=== PATIENT | female | born 1985 | race Caucasian/White ===

== ENCOUNTER → 2017-02-16 | Outpatient (CLI) | payer OTHER | LOC: LAB 16:33 | DX: R31.1 Benign essential microscopic hematuria (principal) | CPT/HCPCS: 87086 ==

== ENCOUNTER 2020-07-21 12:58 | Emergency (ER) | payer BC, OTHER ==
[~2020-07-21 12:58] MED LIST: ASPIRIN CHEWABL81 MG PO; NITROSTAT0.4 MG SL; NORCO 5-325 TA1 EACH PO; OMNICEF 300 MG300 MG PO; ZOFRAN ODT 4 MG4 MG SL
[2020-07-21 17:05] LABS: HEMOGLOBIN 13.9 gm/dl (12.3-15.3); RED BLOOD COUNT 4.63 M/UL (4.00-5.10)
[2020-07-21 17:30] LABS: BUN/CREATININE RATIO 9 (0-10)
== END 2020-07-21 18:37 | disposition home or self-care (01) ==
LOC: ER1 12:58
PROVIDERS: Physician Assistant
DX: R10.11 Right upper quadrant pain (principal); R11.2 Nausea with vomiting, unspecified; R19.7 Diarrhea, unspecified; I10 Essential (primary) hypertension; F17.290 Nicotine dependence, other tobacco product, uncomplicated; Z90.49 Acquired absence of other specified parts of digestive tract; Z88.8 Allergy status to other drugs, medicaments and biological substances
CPT/HCPCS: 80053; 81001; 82150; 83690; 84703; 85025; 96374; 96375; 99284; J2270; J2405; Q9967

== ENCOUNTER → 2020-07-28 | Outpatient (CLI) | payer BC, OTHER | LOC: EXRD 06-21 08:00 | DX: R10.13 Epigastric pain (principal); Z90.49 Acquired absence of other specified parts of digestive tract | CPT/HCPCS: 76705 ==

== ENCOUNTER → 2020-09-27 | Outpatient (CLI) | payer BC, OTHER | LOC: RAD 10:39 | DX: M25.551 Pain in right hip (principal) | CPT/HCPCS: 73502 ==

== ENCOUNTER → 2020-09-29 | Outpatient (CLI) | payer BC, OTHER | LOC: HEART 5 08:00 | DX: R00.2 Palpitations (principal) ==

== ENCOUNTER → 2020-12-07 | Outpatient (CLI) | payer BC | LOC: RAD 13:45 | DX: M79.671 Pain in right foot (principal) | CPT/HCPCS: 73630 ==

== ENCOUNTER → 2021-01-06 | Outpatient (CLI) | payer BC | LOC: RAD 08:40 | DX: S73.101A Unspecified sprain of right hip, initial encounter (principal) | CPT/HCPCS: 73722; A9577; Q9967 ==

== ENCOUNTER → 2021-05-19 | Outpatient (CLI) | payer BC ==
[~2021-05-19] MED LIST changes: +DAILY VALUE1 EACH PO; +MECLIZINE HCL25 MG PO; +PROMETHAZINE12.5 M1 PO; +PROVENTIL HFA6.7 GM INH; +TOPAMAX100 MG PO; +[UNRECOGNIZED DRUG - REMARK] IR
[2021-05-19 10:41] LABS: HEMOGLOBIN 12.8 gm/dl (12.3-15.3); RED BLOOD COUNT 4.33 M/UL (4.00-5.10); WHITE BLOOD COUNT 7.6 K/UL (4.5-11.0)
== END ==
LOC: OPSV2 05-17 10:30
PROVIDERS: Obstetrics & Gynecology
DX: Z01.812 Encounter for preprocedural laboratory examination (principal); N93.9 Abnormal uterine and vaginal bleeding, unspecified
CPT/HCPCS: 36415; 81001; 85025

== ENCOUNTER → 2021-05-25 | Day surgery (SDC) | payer BC ==
[~2021-05-25] MED LIST changes: +DOCUSATE SODIU250 MG PO; +HYDROCODONE-AC1 EACH PO; +IBUPROFEN600 MG PO
== END | disposition home or self-care (01) ==
LOC: OR 05:26
DX: N83.8 Other noninflammatory disorders of ovary, fallopian tube and broad ligament (principal); N80.0 Endometriosis of uterus; N73.6 Female pelvic peritoneal adhesions (postinfective); I10 Essential (primary) hypertension; Z91.040 Latex allergy status; Z90.49 Acquired absence of other specified parts of digestive tract; Z20.822 Contact with and (suspected) exposure to COVID-19
CPT/HCPCS: 36415; 84702; C1769; J0690; J1100; J1885; J2001; J2250; J2405; J2704; J2710; J3010; J7120

== ENCOUNTER 2021-06-07 08:51 | Emergency (ER) | payer BC ==
[2021-06-07 10:09] LABS: HEMOGLOBIN 11.9 gm/dl (12.3-15.3); RED BLOOD COUNT 4.07 M/UL (4.00-5.10); WHITE BLOOD COUNT 5.9 K/UL (4.5-11.0)
[2021-06-07 10:30] LABS: BUN/CREATININE RATIO 10 (0-10)
== END 2021-06-07 15:20 | disposition home or self-care (01) ==
LOC: ER1 08:51
PROVIDERS: Nurse Practitioner
DX: U07.1 COVID-19 (principal); F17.290 Nicotine dependence, other tobacco product, uncomplicated
CPT/HCPCS: 0240U; 71045; 80048; 81001; 82550; 82553; 83874; 84484; 85025; 85379; 85610; 85730; 93005; 96374; 96375; 99285; J2270; J2405

== ENCOUNTER → 2021-08-03 | Outpatient (CLI) | payer BC ==
[2021-08-03 11:02] LABS: BUN/CREATININE RATIO 12 (0-10)
== END ==
LOC: LAB 08:40
PROVIDERS: Nurse Practitioner
DX: G25.81 Restless legs syndrome (principal); Z51.81 Encounter for therapeutic drug level monitoring; Z79.899 Other long term (current) drug therapy
CPT/HCPCS: 36415; 80053; 82728; 83735

== ENCOUNTER → 2021-09-19 | Outpatient (CLI) | payer BC | LOC: KOH-I 14:30 | DX: R31.29 Other microscopic hematuria (principal) | CPT/HCPCS: 76775 ==